=== PATIENT | female | born 2000 | race Caucasian/White ===

== ENCOUNTER 2023-07-19 23:00 | Emergency (ER) | payer SELFPAY ==
[~2023-07-19] VITALS: Ht 149.9 cm; Wt 48.0 kg
[2023-07-19 23:13] VITALS: TEMP 98.5; O2SAT 100
[2023-07-19] MEDS ORDERED: MORPHINE SULFATE 2 MG/ML CPJ (NOT FOR IM USE) IV ONE (23:45)
[2023-07-19] MEDS ORDERED: AMPICILLIN SOD/SULBACTAM NA 3 G in SODIUM CHLORIDE 0.9% 100 ML IV SCH (23:45)
[2023-07-20 00:12] LABS: CLARITY URINE CLOUDY (CLEAR); COLOR URINE DARK YELLOW (YELLOW); GLUCOSE URINE TRACE (NEGATIVE); KETONES URINE 4+ (NEGATIVE); LEUKOCYTE ESTERASE URINE TRACE (NEGATIVE); NITRITE URINE NEGATIVE (NEGATIVE); OCCULT BLOOD URINE 3+ (NEGATIVE); PROTEIN URINE 2+ (NEGATIVE); SPECIFIC GRAVITY URINE 1.053 (1.005-1.030)
[2023-07-20 00:14] LABS: BASOPHILS % 0.2 % (0.0-2.0); EOSINOPHILS % 0.1 % (0.0-5.0); HEMATOCRIT. 40.4 % (36.0-48.0); HEMOGLOBIN. 13.6 g/dL (12.0-16.0); LYMPHOCYTES % 7.9 % (20.0-50.0); MEAN CORPUSCULAR HEMOGLOBIN 31.8 pg (28.0-32.0); MEAN CORPUSCULAR HGB CONC 33.7 g/dL (31.0-37.0); MEAN CORPUSCULAR VOLUME 94.4 fL (81.0-99.0); MEAN PLATELET VOLUME 9.4 fl (7.4-10.4); MONOCYTES % 7.5 % (2.0-8.0); NEUTROPHILS % 84.3 % (40.0-76.0); PLATELET 234 x1000/uL (130-400); RED BLOOD CELL COUNT 4.28 mill/uL (4.2-5.4); RED CELL DISTRIBUTION WIDTH 12.7 % (11.6-14.6); WHITE BLOOD COUNT 15.9 x1000/uL (4.5-11.0)
[2023-07-20 00:15] LABS: BACTERIA URINE NONE SEEN; RBC URINE 25-50 /hpf (0-2); SQUAMOUS EPITHELIAL CELL URINE 3+ /lpf (RARE/1+); YEAST URINE NONE SEEN
[2023-07-20 00:31] LABS: D-DIMER < 0.19 mg/L FEU (<0.50); PARTIAL THROMBOPLASTIN TIME 27.7 sec (23.4-31.0); PROTHROMBIN TIME 11.2 sec (9.6-11.0)
[2023-07-20 00:42] LABS: HCG SCREEN NEGATIVE
[2023-07-20] MEDS ORDERED: IOHEXOL-300 100 ML BOTTLE ONE (01:11)
[2023-07-20 01:46] LABS: CARBON DIOXIDE 30 mEq/L (21-32); CHLORIDE 103 mEq/L (98-107); POTASSIUM 3.6 mEq/L (3.5-5.1); SODIUM 141 mEq/L (136-145)
[2023-07-20 01:47] LABS: ALBUMIN 4.5 g/dL (3.2-4.8); CALCIUM 9.7 mg/dL (8.7-10.4); CREATININE 1.2 mg/dL (0.6-1.0); PROTEIN TOTAL 7.1 g/dL (6.0-8.3)
[2023-07-20 01:48] LABS: ALANINE AMINOTRANSFERASE 26 IU/L (10-49); ASPARTATE AMINOTRANSFERASE 40 IU/L (<34); BILIRUBIN TOTAL 1.1 mg/dL (0.1-1.0); TROPONIN I HIGH SENSITIVITY 9 ng/L (3.0-34)
[2023-07-20 01:49] LABS: UREA NITROGEN BLOOD 13 mg/dL (9-23)
[2023-07-20 01:51] LABS: ACETAMINOPHEN 5 ug/mL (10-30); GLUCOSE 101 mg/dL (70-105)
[2023-07-20] MEDS ORDERED: AMOX1TAB16 MT (01:55)
[2023-07-20] MEDS ORDERED: IBUP-2028 MT (01:55)
[2023-07-20 03:50] LABS: TROPONIN I HIGH SENSITIVITY < 4 ng/L (3.0-34)
[2023-07-20 04:06] VITALS: BP 121/78; PULSE 75; RESP 18
== END 2023-07-20 04:07 | disposition home or self-care (01) ==
LOC: ER 23:22
DX: R07.9 Chest pain, unspecified (principal); K04.7 Periapical abscess without sinus
CPT/HCPCS: 80053; 81003; 81025; 80307; 80329; 84703; 83880; 85025; 85379; 85610; 85730; 87040; 87086; 84484 ×2; 36415 ×2; 71045; 93005 ×2; 99285; 70487; 96365; 96375; J0295; J7050; Q9967; J2270